=== PATIENT | male | born 1975 | race African-American/Black ===

== ENCOUNTER 2016-12-27 21:45 | Emergency (ER) | payer OTHER ==
[2016-12-27 22:12] VITALS: BP 129/79; PULSE 66; TEMP 97.7; BMI 24.3
[2016-12-27] MEDS ORDERED: diazePAM 5 MG TABLET PO ONE (22:29)
[2016-12-27] MEDS ORDERED: KETOROLAC TROMETHAMINE 60 MG/2 ML VIAL IM ONE (22:29)
[2016-12-27] MEDS ORDERED: diazePAM 5 MG TABLET ONE (22:38)
[2016-12-27] MEDS ORDERED: KETOROLAC TROMETHAMINE 60 MG/2 ML VIAL ONE (22:38)
--- NOTE | 2016-12-27 22:44 | PDOC ---
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 No: unknown Associated Symptoms (Fall): denies symptoms Past History - Past Medical History Allergies/Adverse Reactions: Allergies Allergy/AdvReac Type Severity Reaction Status Date / Time No Known Allergies Allergy Verified 12/27/16 22:12 Other medical history: Pt denies - Surgical History Appendectomy: Yes - Psycho/Social/Smoking Cessation Hx Suicidal Ideation: No Smoking History: Never smoked Information on smoking cessation initiated: No Hx Alcohol Use: No Drug/Substance Use Hx: No Substance Use Type: None Review of Systems - Review of Systems Constitutional: No: Symptoms Reported, Chills, Fever, Malaise HEENTM: No: Symptoms Reported Respiratory: No: Symptoms reported Cardiac (ROS): No: Symptoms Reported : No: Burning, Dysuria, Frequency, Incontinence, Testicular Mass, Testicular Swelling Musculoskeletal: Yes: Back Pain, Muscle Pain. No: Neck Pain Neurological: No: Headache, Numbness, Paresthesia, Tingling, Weakness, Unsteady Gait *Physical Exam - Vital Signs Last Vital Signs Temp Pulse Resp BP Pulse Ox 97.7 F 66 18 129/79 99 12/27/16 22:06 12/27/16 22:06 12/27/16 22:06 12/27/16 22:06 12/27/16 22:06 - Physical Exam General Appearance: Yes: Appropriately Dressed. No: Apparent Distress HEENT: positive: TMs Normal, Pharynx Normal Neck: positive: Supple. negative: Tender, Rigid, Tender lateral, Tender midline Respiratory/Chest: positive: Lungs Clear, Normal Breath Sounds Gastrointestinal/Abdominal: positive: Normal Bowel Sounds, Flat, Soft. negative : Tender, Organomegaly, Pulsatile Mass, Tenderness, Mass, Hepatomegaly, Spleenomegaly Musculoskeletal: positive: Muscle Spasm, Other (tender area L4-L5 area) Integumentary: positive: Normal Color, Dry, Warm Neurologic: positive: program host II-XII NML intact, Fully Oriented, Alert, Normal Mood/ Affect, Motor Strength 5/5, Babinski, Other (SLRs= no root pain; no foot drop). negative: Normal Response, Sensory Deficit Deep Tendon Reflexes: Ankle (L): 1+, Ankle (R): 1+, Knee (L): 1+, Knee (R): 1+ Medical Decision Making - Medical Decision Making 12/27/16 22:42 given toradol, valium in ED; better post toradol/ valium; sent home with naprosyn *DC/Admit/Observation/Transfer Diagnosis at time of Disposition: Back pain Qualifiers: Back pain location: low back pain Chronicity: acute Back pain laterality: bilateral Sciatica presence: without sciatica Qualified Code(s): M54.5 - Low back pain - Discharge Dispostion Disposition: HOME Condition at time of disposition: Stable - Post Discharge Activity Work/School Note: Back to Work
== END 2016-12-27 22:56 | disposition home or self-care (01) ==
LOC: JER 21:45
PROC: 3E0233Z Introduction of Anti-inflammatory into Muscle, Percutaneous Approach (ICD-10-PCS; principal; 2016-12-27)
DX: M54.5 Low back pain (principal)
CPT/HCPCS: 99281-25